=== PATIENT | female | born 1985 | race Caucasian/White ===

== ENCOUNTER 2017-02-02 20:03 | Emergency (ER) | payer MEDICARE | END 2017-02-02 21:30 | disposition home or self-care (01) | LOC: ER1 20:03 | DX: Z53.21 Procedure and treatment not carried out due to patient leaving prior to being seen by health care provider (principal) ==

== ENCOUNTER → 2021-03-26 | Outpatient (CLI) | payer MEDICARE, OTHER ==
[2021-03-26 11:52] LABS: RED BLOOD COUNT 4.71 M/UL (4.00-5.10); WHITE BLOOD COUNT 7.7 K/UL (4.5-11.0)
[2021-03-26 12:04] LABS: BUN/CREATININE RATIO 14 (0-10)
[2021-03-27 07:11] LABS: HBSAG SCREEN Negative (Negative); HEP B CORE AB, TOT Negative (Negative)
[2021-03-28 07:11] LABS: HCV AB <0.1 (0.0-0.9)
[2021-03-29 10:10] LABS: QUANTIFERON MITOGEN VALUE >10.00 IU/mL (.); QUANTIFERON NIL VALUE 0.03 IU/mL (.); QUANTIFERON TB1 AG VALUE 0.03 IU/mL (.); QUANTIFERON TB2 AG VALUE 0.03 IU/mL (.); QUANTIFERON-TB GOLD PLUS Negative (Negative)
== END ==
LOC: LAB 10:43
PROVIDERS: Nurse Practitioner Family
DX: Z87.39 Personal history of other diseases of the musculoskeletal system and connective tissue (principal); Z79.899 Other long term (current) drug therapy; M25.50 Pain in unspecified joint; M79.10 Myalgia, unspecified site; Z11.59 Encounter for screening for other viral diseases; M06.9 Rheumatoid arthritis, unspecified
CPT/HCPCS: 36415; 80053; 82550; 83520; 85025; 85652; 86140; 86200; 86704; 86803; 87340

== ENCOUNTER → 2021-05-14 | Outpatient (CLI) | payer MEDICARE, OTHER ==
[2021-05-14 12:08] LABS: HEMOGLOBIN 15.5 gm/dl (12.3-15.3); RED BLOOD COUNT 5.21 M/UL (4.00-5.10); WHITE BLOOD COUNT 8.7 K/UL (4.5-11.0)
[2021-05-14 12:23] LABS: BUN/CREATININE RATIO 15 (0-10)
== END ==
LOC: LAB 10:47
PROVIDERS: Physician Assistant
DX: R11.0 Nausea (principal)
CPT/HCPCS: 36415; 80048; 80076; 82150; 83690; 85025

== ENCOUNTER → 2021-06-19 | Outpatient (CLI) | payer MEDICARE, OTHER | LOC: KOH-I 08:21 | DX: M50.01 Cervical disc disorder with myelopathy, high cervical region (principal); M50.11 Cervical disc disorder with radiculopathy, high cervical region; M51.36 Other intervertebral disc degeneration, lumbar region; M50.122 Cervical disc disorder at C5-C6 level with radiculopathy; M51.26 Other intervertebral disc displacement, lumbar region | CPT/HCPCS: 72141; 72148 ==